=== PATIENT | female | born 1985 | race Caucasian/White ===

== ENCOUNTER 2018-01-22 03:35 | Emergency (ER) | payer OTHER, MEDICAID, SELFPAY ==
[2018-01-22 03:40] VITALS: BP 123/84; PULSE 66; RESP 16; TEMP 36.1; O2SAT 100; BMI 20.5
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
[2018-01-22] MEDS: IBUPROFEN 400 MG TABLET 600 MG PO (03:56)
[2018-01-22 04:35] VITALS: BP 123/84; PULSE 66; RESP 16; TEMP 36.1; O2SAT 100; BMI 20.5
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
== END 2018-01-22 04:20 | disposition home or self-care (01) ==
LOC: ED 04:45
PROVIDERS: Emergency Provider Emergency Medicine
DX: S16.1XXA Strain of muscle, fascia and tendon at neck level, initial encounter (principal); M25.512 Pain in left shoulder; M25.562 Pain in left knee; V49.40XA Driver injured in collision with unspecified motor vehicles in traffic accident, initial encounter
CPT/HCPCS: 99282

== ENCOUNTER → 2018-09-19 11:33 | Outpatient (CLI) | payer OTHER, MEDICAID, SELFPAY ==
[2018-09-19 12:50] LABS: Urine Amphetamines Negative (Negative); Urine Barbiturates Negative (Negative); Urine Benzodiazepines Negative (Negative); Urine Cocaine Negative (Negative); Urine MDMA Negative (Negative); Urine Methadone Negative (Negative); Urine Methamphetamines Negative (Negative); Urine Morphine/Opi cutoff 2000 Negative (Negative); Urine Oxycodone Negative (Negative); Urine Phencyclidine Negative (Negative); Urine Tetrahydrocannabinol Positive (Negative); Urine Tricyclic Antidepressant Negative (Negative)
== END ==
PROVIDERS: Visit Provider Psychiatry & Neurology Psychiatry
DX: Z13.89 Encounter for screening for other disorder (principal)
CPT/HCPCS: 80305

== ENCOUNTER → 2018-10-18 16:57 | Outpatient (CLI) | payer OTHER, MEDICAID, SELFPAY ==
[2018-10-18 18:44] LABS: Urine Amphetamines Negative (Negative); Urine Barbiturates Negative (Negative); Urine Benzodiazepines Positive (Negative); Urine Cocaine Negative (Negative); Urine MDMA Negative (Negative); Urine Methadone Negative (Negative); Urine Methamphetamines Negative (Negative); Urine Morphine/Opi cutoff 2000 Negative (Negative); Urine Oxycodone Negative (Negative); Urine Phencyclidine Negative (Negative); Urine Tetrahydrocannabinol Negative (Negative); Urine Tricyclic Antidepressant Negative (Negative)
== END ==
PROVIDERS: Visit Provider Psychiatry & Neurology Psychiatry
DX: F15.21 Other stimulant dependence, in remission (principal)
CPT/HCPCS: 80305

== ENCOUNTER 2018-12-08 02:42 | Emergency (ER) | payer OTHER, MEDICAID, SELFPAY ==
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
[2018-12-08 02:47] VITALS: BP 97/56; PULSE 102; RESP 16; TEMP 38.6; O2SAT 96; BMI 19.3
--- NOTE | 2018-12-08 02:50 | DI.CT.S_ITS ---
PROCEDURE: CT ABDOMEN PELVIS W CON INDICATIONS: Right lower quadrant abdominal pain TECHNIQUE: After the administration of intravenous contrast, 5 mm thick sections acquired from the diaphragm to the symphysis. 5 mm coronal and sagittal reformats were acquired. For radiation dose reduction, the following was used: automated exposure control, adjustment of mA and/or kV according to patient size. COMPARISON: None. FINDINGS: Image quality: Excellent. ABDOMEN: Lung bases: Lung bases are clear. Heart size is normal. Solid organs: Liver is normal in size and enhancement. Gallbladder is contracted. Biliary system is non dilated. Pancreas enhances normally. Spleen is normal in size and enhancement. No adrenal nodules. There is heterogeneous enhancement with striated cortical hypoattenuation and moderate right perinephric inflammatory stranding. Associated, scattered foci of cortical irregularity correlating with areas of hyperattenuation/herniation. No evidence for a mass fluid collection. There is also stranding surrounding the right renal pelvis. Visualized course of the right ureter is unremarkable without stone. No hydronephrosis. The left kidney demonstrates normal size and enhancement, without hydronephrosis. No nephrolith seen. Peritoneum and bowel: Bowel loops demonstrate normal wall thickness and caliber. No free fluid or air. The appendix is normal. Nodes and vessels: No retroperitoneal or mesenteric adenopathy by size criteria. Aorta and inferior vena cava are normal in size. Miscellaneous: No ventral hernias. PELVIS: Genitourinary: Bladder wall thickness is normal. An intrauterine device is noted within the endometrial cavity. Miscellaneous: No inguinal hernias or adenopathy. Bones: No suspicious bony lesions. No vertebral body compression fractures. IMPRESSION: 1. Mild cortical irregularity and striated heterogeneous enhancement of the right kidney with moderate perinephric stranding which also involves the right renal pelvis. Findings are suggestive of pyelonephritis. No evidence for perinephric abscess formation or perforation. No hydronephrosis or urolithiasis. 2. Normal appendix. Findings are concordant with preliminary radiology report. Dictated by: Josep Marcus M.D. on 12/08/2018 at 11:29 Approved by: Josep Marcus M.D. on 12/08/2018 at 11:34
[2018-12-08] MEDS: ONDANSETRON 4 MG/2 ML INJ IV (02:56)
[2018-12-08] MEDS: ACETAMINOPHEN 325 MG TABLET 650 MG PO (02:57)
[2018-12-08] MEDS: SODIUM CHLORIDE 0.9% 1,000 ML 1000 ML IV (02:57)
[2018-12-08 03:10] LABS: Add Manual Diff / Slide Review NO; Basophils Absolute Auto 100 /uL (0-100); Basophils Percent Auto 0.6 % (0-2); Eosinophils Absolute Auto 0 /uL (0-450); Eosinophils Percent Auto 0.1 % (2-4); Hematocrit 35.9 % (36-46); Hemoglobin 12.2 g/dL (12.0-16.0); Lymphocytes Absolute Auto 1000 /uL (1100-4500); Mean Corpuscular Hemoglobin 30.2 PG (26-34); Mean Corpuscular Volume 88.7 fL (80-100); Monocytes Absolute Auto 1000 /uL (0-900); Monocytes Percent Auto 8.4 % (3-14); Neutrophils Absolute Auto 9500 /uL (1500-7000); Neutrophils Percent Auto 81.9 % (50-75); Platelet Count 165 X10^3/uL (150-400); Red Blood Cell Count 4.05 X10^6/uL (4.0-5.2); Red Cell Distribution Width 13.5 % (11.6-14.8); White Blood Cell Count 11.6 X10^3/uL (4.5-11.0)
[2018-12-08 03:17] LABS: Pregnancy Test Serum,Qual Negative (Negative)
[2018-12-08 03:18] LABS: Alanine Aminotransferase 19 IU/L (9-52); Albumin 3.6 g/dL (3.5-5.0); Albumin Globulin Ratio 1.3 (1.0-2.8); Alkaline Phosphatase 51 U/L (38-126); Aspartate Aminotransferase 15 IU/L (14-36); BUN Creatinine Ratio 14.3 (6-22); Bilirubin Total 0.2 mg/dL (0.2-1.3); Blood Urea Nitrogen 10 mg/dL (7-17); Calcium 8.3 mg/dL (8.4-10.2); Carbon Dioxide 21 mmol/L (22-32); Chloride 99 mmol/L (98-107); Estimated Glomerular Filt Rate > 60.0 mL/min (>60); Globulin 2.8 g/dL (1.7-4.1); Glucose 111 mg/dL (70-100); HEMOLYSIS < 15 (0-50); Potassium 3.5 mmol/L (3.4-5.1); Sodium 129 mmol/L (137-145); Total Protein 6.4 g/dL (6.3-8.2)
[2018-12-08 03:19] LABS: Lactate (Lactic Acid) 0.7 mmol/L (0.7-2.1)
[2018-12-08 03:33] LABS: Procalcitonin 0.24 ng/mL (<0.5)
[2018-12-08 04:00] VITALS: TEMP 36.9
[2018-12-08 04:15] VITALS: BP 104/58; PULSE 77; RESP 16; TEMP 36.9; O2SAT 100
[2018-12-08] MEDS: CIPROFLOXACIN 500 MG TABLET PO (04:25)
[2018-12-08 04:49] LABS: Bacteria Urine Many (>30); Culture Indicated Urine Specimen Cultured; RBC Urine 0-1/HPF (0-5/HPF); Squamous Epithelial Cell Urine 0-1 /HPF (0-5/HPF); WBC Urine 5-10/HPF (0-5/HPF)
== END 2018-12-08 05:04 | disposition home or self-care (01) ==
PROVIDERS: Emergency Provider Emergency Medicine
DX: N12 Tubulo-interstitial nephritis, not specified as acute or chronic (principal); M54.5 Low back pain; N89.8 Other specified noninflammatory disorders of vagina
CPT/HCPCS: 36591; 74177; 80053; 81003; 81015; 83605; 84145; 84703; 85025; 87077; 87086; 87186; 96361; 96374; 99283; 99284; J2405; Q9967

== ENCOUNTER 2019-08-28 18:27 | Emergency (ER) | payer OTHER, MEDICAID, SELFPAY ==
[2019-08-28 18:41] VITALS: BP 143/90; PULSE 90; RESP 12; TEMP 36.3; O2SAT 98
[2019-08-28 19:06] LABS: UR Morphine/Opiate cutoff 300 Negative (Negative); Ur Creatinine Normal (Normal); Ur Specific Gravity Normal (Normal); Urine Amphetamines Negative (Negative); Urine Barbiturates Negative (Negative); Urine Benzodiazepines Negative (Negative); Urine Cocaine Negative (Negative); Urine MDMA Negative (Negative); Urine Methadone Negative (Negative); Urine Methamphetamines Negative (Negative); Urine Oxycodone Negative (Negative); Urine Phencyclidine Negative (Negative); Urine Tetrahydrocannabinol Negative (Negative); Urine Tricyclic Antidepressant Negative (Negative); Urine pH Normal (Normal)
--- NOTE | 2019-08-28 19:06 | ED_ITS ---
HPI - Female Genitourinary <CHRISTINE Gaffney - Last Filed: 08/28/19 20:19> General Chief complaint: Urogenital-Female Stated complaint: WANTS UA UNABLE TO TASTE/POSS ? Time Seen by Provider: 08/28/19 18:44 Source: patient Mode of arrival: Ambulatory Limitations: no limitations History of Present Illness HPI Narrative: The patient is a 34-year-old female with an extensive medical history including methamphetamine abuse, pyelonephritis, PTSD, anxiety who presents with multiple complaints including requesting a urinalysis, requesting a drug screen as she is afraid somebody is drugging her, stating that she feels ?not quite right but cannot state what that means to her. She is concerned about the possibility of as she has not had a menstrual cycle in 2 months. She states that she has been losing her sense of taste and smell over the past month and a half. She states that she has a ?small sore for a few days on perineal area. She states is painful when she presses on it, but does not itch. She denies any vaginal discharge, pelvic pain, abdominal pain, nausea vomiting or diarrhea. Related Data Home Medications Medication Instructions Recorded Confirmed buprenorphine-naloxone 1 film SUBLINGUAL DAILY 08/28/19 08/28/19 Allergies Allergy/AdvReac Type Severity Reaction Status Date / Time No Known Drug Allergies Allergy Verified 05/05/19 11:47 Review of Systems <CHRISTINE Gaffney - Last Filed: 08/28/19 20:19> Review of Systems Narrative: GENERAL: Denies chills, fatigue, malaise, fever, sweats. HEENT: Denies sinus pain, ear pain, sore throat, difficulty swallowing, dizziness. RESPIRATORY: Denies dyspnea, cough, wheezing, hemoptysis, sputum. CARDIOVASCULAR: Denies chest pain, palpitations, orthopnea, edema, GASTROINTESTINAL: Denies nausea, vomiting, abdominal pain, diarrhea, constipation, melena. : See HPI MUSCULOSKELETAL: denies weakness, joint pain, or bony pain SKIN: Denies rash, skin lesions, or other NEUROLOGIC: Denies weakness, headache, numbness, change in speech, confusion, seizures, incoordination. PSYCHIATRIC: See HPI 12 point review of systems is negative except for those stated above Patient History <CHRISTINE Gaffney - Last Filed: 08/28/19 20:19> Medical History Anxiety (Acute) Drug abuse (Acute) PTSD (post-traumatic stress disorder) (Acute) alcohol intake frequency: a few times a week Substance Use Type: amphetamines Exam <AL Gaffney - Last Filed: 08/28/19 20:19> Narrative Exam Narrative: GENERAL: This is a well-nourished, well-developed patient, in no acute distress HEAD: Atraumatic. Normocephalic. No temporal or scalp tenderness. EYES: Pupils equal round and reactive. Extraocular motions intact. No scleral icterus. No injection or drainage. ENT: Nose without bleeding, purulent drainage or septal hematoma. Throat without erythema, tonsillar hypertrophy or exudate. Uvula midline. Airway patent. NECK: Trachea midline. No JVD or lymphadenopathy. Supple, nontender, no meningeal signs. CARDIOVASCULAR: Regular rate and rhythm RESPIRATORY: Clear to auscultation. Breath sounds equal bilaterally. No wheezes, rales, or rhonchi. No cough. No increased respiratory effort. No accessory muscle use. GASTROINTESTINAL: Abdomen soft, non-tender, nondistended. No hepato- splenomegaly, or palpable masses. No guarding. EXTREMITIES: No clubbing, cyanosis, or edema. No joint tenderness, effusion, or edema noted. BACK: Nontender without deformity or crepitance. No flank tenderness. NEURO: AOx3. SKIN: No visible bump, irregularity noted and genitaliaedith RN at bedside for exam, Initial Vital Signs Initial Vital Signs: Vital Signs Temperature 97.3 F L 08/28/19 18:41 Pulse Rate 90 08/28/19 18:41 Respiratory Rate 12 08/28/19 18:41 Blood Pressure 143/90 H 08/28/19 18:41 Pulse Oximetry 98 08/28/19 18:41 <Preet Huynh MD - Last Filed: 08/29/19 02:48> Initial Vital Signs Initial Vital Signs: Vital Signs Temperature 97.3 F L 08/28/19 18:41 Pulse Rate 90 08/28/19 18:41 Respiratory Rate 12 08/28/19 18:41 Blood Pressure 143/90 H 08/28/19 18:41 Pulse Oximetry 98 08/28/19 18:41 Scores <AL Gaffney - Last Filed: 08/28/19 20:19> GCS Jai coma scale eye opening: Spontaneous [place] coma scale verbal response: Orientated Jai coma scale motor response: Obey commands Jai coma scale total score: 15 Course <AL Gaffney - Last Filed: 08/28/19 20:19> Orders Ordered: ED Orders 08/28/19 18:46 Urine Drug Screen, Rapid Stat Vital Signs Vital signs: Vital Signs - 8 hr 08/28/19 18:41 Temperature 97.3 F L Pulse Rate 90 Respiratory Rate 12 Blood Pressure 143/90 H Pulse Oximetry 98 <Preet Huynh MD - Last Filed: 08/29/19 02:48> Orders Ordered: ED Orders 08/28/19 18:46 Urine Drug Screen, Rapid Stat Vital Signs Vital signs: Vital Signs - 8 hr 08/28/19 18:41 Temperature 97.3 F L Pulse Rate 90 Respiratory Rate 12 Blood Pressure 143/90 H Pulse Oximetry 98 MDM - Female Genitourinary <AL Gaffney - Last Filed: 08/28/19 20:19> Lab Data Labs: Lab Results 08/28/19 Range/Units 18:46 U Opiates 300ng/mL cut Negative (Negative) Ur Oxycodone Screen Negative (Negative) Urine Methadone Screen Negative (Negative) Ur Barbiturates Screen Negative (Negative) U Tricyclic Antidepress Negative (Negative) Ur Phencyclidine Scrn Negative (Negative) Ur Amphetamines Screen Negative (Negative) U Methamphetamines Scrn Negative (Negative) Ur MDMA Scrn (Ecstasy) Negative (Negative) U Benzodiazepines Scrn Negative (Negative) Urine Cocaine Screen Negative (Negative) U Marijuana (THC) Screen Negative (Negative) Point of Care Testing Test Results Negative Urine Dip Bedside Urine Glucose Negative Bedside Urine Bilirubin - Negative Bedside Urine Ketone - Negative Urine Specific [place] 1.025 Bedside Urine Occult Blood - Negative Bedside Urine pH 6.0 Bedside Urine Protein - Negative Bedside Urine Urobilinogen - Negative Bedside Urine Nitrite - Negative Bedside Urine Leukocytes - Negative Esterase MDM Narrative Medical decision making narrative: The patient is a 34-year-old female presents with a chief complaint of wanting to be tested for urinalysis, possible in decreased taste sensation for the past several months. She states that she is 32 days clean from methamphetamine and all drugs. She is wondering of her Suboxone is changing her taste buds. For this I encouraged her to follow up with ideal options, discussed that Suboxone might be having an impact on taste buds, as could have smoking methamphetamine. She is concerned about drugs in her system, but urinalysis is clean. She is not concerned about assault, does not want to speak to police, does not want us to call police. Discussed at length the fact that she wants a well-woman screening exam with Pap smear that we do not do Pap smears in the emergency department. I did give her contact information on hospital water resources engineer. Discussed at length the importance of follow-up with primary care provider ideal options. Reassurance provided, patient congratulated several times and being clean for 32 days. Patient has no questions or concerns upon discharge and states understanding of return precautions as well as follow-up care. <Preet Huynh MD - Last Filed: 08/29/19 02:48> Lab Data Labs: Lab Results 08/28/19 Range/Units 18:46 U Opiates 300ng/mL cut Negative (Negative) Ur Oxycodone Screen Negative (Negative) Urine Methadone Screen Negative (Negative) Ur Barbiturates Screen Negative (Negative) U Tricyclic Antidepress Negative (Negative) Ur Phencyclidine Scrn Negative (Negative) Ur Amphetamines Screen Negative (Negative) U Methamphetamines Scrn Negative (Negative) Ur MDMA Scrn (Ecstasy) Negative (Negative) U Benzodiazepines Scrn Negative (Negative) Urine Cocaine Screen Negative (Negative) U Marijuana (THC) Screen Negative (Negative) Point of Care Testing Test Results Negative Urine Dip Bedside Urine Glucose Negative Bedside Urine Bilirubin - Negative Bedside Urine Ketone - Negative Urine Specific [place] 1.025 Bedside Urine Occult Blood - Negative Bedside Urine pH 6.0 Bedside Urine Protein - Negative Bedside Urine Urobilinogen - Negative Bedside Urine Nitrite - Negative Bedside Urine Leukocytes - Negative Esterase Discharge Plan Departure Patient Disposition: Home Clinical Impression: Feared complaint without diagnosis Discharge Date/Time: 08/28/19 20:12 Instructions: Buprenorphine Sublingual and Buccal (opioid dependence) Activity Restrictions/Additional Instructions: I'm very proud of you for staying clean for 32 days! Your urinalysis today had no acute abnormalities, test came back negative and your drug screen came back negative Please follow-up with primary care provider as well as ideal options. I've given the contact information [facility] health water resources engineer who can help you find a primary care provider. As discussed, I cannot do a thorough well-woman evaluation, screening exam in the emergency department. Please follow-up with primary care provider or the options as we discussed Prescriptions: No Action buprenorphine-naloxone 8-2 mg film 1 film sublingual DAILY RF: 0 Referrals: [facility] [Outside]
--- NOTE | 2019-08-28 19:08 | PC.NURSE ---
patient concerned about a bump on majora labia, stand by for exam with Mily Melgar. no wound or open area noted.
== END 2019-08-28 20:12 | disposition home or self-care (01) ==
PROVIDERS: Emergency Provider Nurse Practitioner Family
DX: Z71.1 Person with feared health complaint in whom no diagnosis is made (principal)
CPT/HCPCS: 80305; 81003; 81025; 99282

== ENCOUNTER 2019-10-31 12:50 | Emergency (ER) | payer OTHER, MEDICAID, SELFPAY ==
[2019-10-31 13:01] VITALS: BP 135/89; PULSE 62; RESP 18; TEMP 37.2; O2SAT 99; BMI 23.9
--- NOTE | 2019-10-31 13:14 | ED.URI ---
HPI - URI/Sore Throat <MARIA Ledbetter - Last Filed: 10/31/19 21:14> General Chief Complaint: Upper Respiratory Symptoms Stated Complaint: Fever/Cough/Tired Time Seen by Provider: 10/31/19 12:56 Source: patient Mode of arrival: Ambulatory History of Present Illness HPI Narrative: 34yo female who is currently on Suboxone, presents to the emergency department complaining of fatigue, mildly productive cough, intermittent elevated temp of 99F that occurs at the end of the day occasionally. Patient states she also feels a ?popping and cracking in her chest when breathing. Patient states in the morning and feels like her shoulders and hips and knees ache. Patient states she did have intermittent dysuria for the past week as well. Patient states that she has a chronic problem with nausea for which she takes ondansetron for. Patient denies any vomiting, abdominal pain, dizziness, chest pain, shortness of breath, or any other concerns. Patient denies any history of asthma but states she has had pneumonia before. Related Data Home Medications Medication Instructions Recorded Confirmed buprenorphine-naloxone 1 film SUBLINGUAL DAILY 08/28/19 08/28/19 Previous Rx's Medication Instructions Recorded cephalexin 500 mg PO BID 7 Days #14 cap 10/31/19 Allergies Allergy/AdvReac Type Severity Reaction Status Date / Time No Known Drug Allergies Allergy Verified 10/31/19 13:04 Review of Systems <MARIA Ledbetter - Last Filed: 10/31/19 21:14> Review of Systems Narrative: REVIEW OF SYSTEMS: GENERAL: Reports intermittent elevated temp. HENT: No head trauma or hearing loss. EYES: No loss of vision, double vision, eye pain, irritation or discharge. CARDIOVASCULAR: No chest pain or syncope. RESPIRATORY: Complains of cough, see HPI. GASTROINTESTINAL: No nausea, vomiting, diarrhea, or constipation. MUSCULOSKELETAL: No weakness or injury. INTEGUMENTARY: No rash, lesions, or pruritus. Patient History <MARIA Ledbetter - Last Filed: 10/31/19 21:14> Medical History Anxiety (Acute) Drug abuse (Acute) PTSD (post-traumatic stress disorder) (Acute) Social History Smoking Status: Current every day smoker Smoking Status: Current every day smoker alcohol intake frequency: a few times a week Substance Use Type: does not use and prescription drug Exam <MARIA Ledbetter - Last Filed: 10/31/19 21:14> Initial Vital Signs Initial Vital Signs: Vital Signs Temperature 99.0 F 10/31/19 13:01 Pulse Rate 62 10/31/19 13:01 Respiratory Rate 18 10/31/19 13:01 Blood Pressure 135/89 10/31/19 13:01 Pulse Oximetry 99 10/31/19 13:01 PHYSICAL EXAMINATION: GENERAL: Well groomed, alert, and cooperative. Answers questions promptly and appropriately. Vital signs noted. HENT: Normocephalic, atraumatic. Ear canals patent. TMs intact without mucus or erythema. Oropharynx with slight erythema, no exudate, Tonsils are not present. EYES: Conjunctiva pink, sclera white, no periorbital swelling. No discharge. CHEST: Normal to inspection and without deformities. CARDIOVASCULAR: S1 and S2 sounds normal. Regular rate and rhythm, no murmurs, clicks, or bruits. RESPIRATORY: Normal respiratory rate, trachea midline, airway patent. No stridor, nasal flaring or accessory muscle use. Able to speak in full sentences. Lungs are clear in all [place] without wheeze, rhonchi, or crackles. Productive cough noted throughout examination. MUSCULOSKELETAL: Normal gait and coordination. Equal tone and mass bilaterally. EXTREMITIES: Moves all extremities. SKIN: Warm, dry, soft, appropriate color for ethnicity. No lesions, rashes, or wounds to visualized areas. NEURO: Alert and Oriented X 3. Good coordination. No ataxia or cognitive issues. PSYCH: Appropriate affect and mood. <Marty iRch DO - Last Filed: 11/03/19 11:35> Initial Vital Signs Initial Vital Signs: Vital Signs Temperature 99.0 F 10/31/19 13:01 Pulse Rate 62 10/31/19 13:01 Respiratory Rate 18 10/31/19 13:01 Blood Pressure 135/89 10/31/19 13:01 Pulse Oximetry 99 10/31/19 13:01 Course <MARIA Ledbetter - Last Filed: 10/31/19 21:14> Course Course Narrative: Patient was given Toradol in the emergency department, she reported improved pain and body aches. Orders Ordered: Discontinued Medications Ketorolac Tromethamine (Toradol) 30 mg IM NOW ONE Stop: 10/31/19 13:15 Last Admin: 10/31/19 13:31 Dose: 30 mg Documented by: [email or web address] Vital Signs Vital signs: Vital Signs - 8 hr 10/31/19 13:33 Temperature 98.2 F Pulse Rate 81 Respiratory Rate 20 Blood Pressure [Left Arm] 138/81 Pulse Oximetry 100 <Marty Rich DO - Last Filed: 11/03/19 11:35> Orders Ordered: Discontinued Medications Ketorolac Tromethamine (Toradol) 30 mg IM NOW ONE Stop: 10/31/19 13:15 Last Admin: 10/31/19 13:31 Dose: 30 mg Documented by: [email or web address] Vital Signs Vital signs: Vital Signs - 8 hr 10/31/19 13:33 Temperature 98.2 F Pulse Rate 81 Respiratory Rate 20 Blood Pressure [Left Arm] 138/81 Pulse Oximetry 100 MDM - URI/Sore Throat <MARIA Ledbetter - Last Filed: 10/31/19 21:14> Medical Records Attestation: I reviewed the patient's medical records. Lab Data Attestation: I reviewed the patient's lab results. Labs: Lab Results 10/31/19 Range/Units 13:15 Urine RBC 0-1/hpf (0-5/HPF) Urine WBC 1-5/hpf (0-5/HPF) Ur Squamous Epith Cells 10-30 /hpf H D (0-5/HPF) Urine Bacteria Moderate (10-30) H (None) Ur Culture Indicated? Cult not indicated Point of Care Testing Test Results Negative Urine Dip Bedside Urine Glucose Negative Bedside Urine Bilirubin - Negative Bedside Urine Ketone - Negative Urine Specific [place] 1.020 Bedside Urine Occult Blood - Negative Bedside Urine pH 6.0 Bedside Urine Protein - Negative Bedside Urine Urobilinogen - Negative Bedside Urine Nitrite - Negative Bedside Urine Leukocytes +/- 15 Esterase Imaging Data Chest x-ray: Radiologist's Impression: [address] [place] [id number] XRay Report Signed Patient: Kristi Ramírez EMR#: [id number] : 1985Acct:[id number] Age/Sex: 34 / FDate of Service: 10/31/19 Loc: ED Accession Number: [id number] Procedure: XR chest 2V Ordering Provider: Jossy Chow PROCEDURE: XR CHEST 2V INDICATIONS: Cough TECHNIQUE: 2 views of the chest were acquired. COMPARISON: None. FINDINGS: Surgical changes and devices: None. Lungs and pleura: Lungs are clear. No pleural effusions or pneumothorax. Mediastinum: Mediastinal contours are normal. Heart size is normal. Bones and chest wall: No suspicious bony abnormalities. Soft tissues appear unremarkable. IMPRESSION: Normal for age, source of current cough symptoms is not seen. Dictated by: Patrick Obregon M.D. on 10/31/2019 at 14:00 Approved by: Patrick Obregon M.D. on 10/31/2019 at 14:00 [facility] Narrative Medical decision making narrative: 34-year-old female presenting to the emergency department for cough, fatigue, body aches, and low-grade fever. Chest x-ray was negative for any pneumonia. I suspect she may have a viral upper respiratory tract infection with possible bronchitis. We discussed this is most likely viral. She did mention she has dysuria, urine showed leukocytes and bacteria, she was treated for this. Less concern for pyelonephritis due to lack of back pain, no CVA tenderness. Patient is hemodynamically stable and able to maintain fluids. She is a candidate for outpatient treatment. Patient did complain of nausea, this is a common problem and is controlled with Zofran. Patient was encouraged to continue taking Tylenol and ibuprofen as needed for low-grade fever. Patient given strict return precautions for any new or worsening symptoms, she agrees plan of care and verbalized understanding. <Marty Rich, - Last Filed: 11/03/19 11:35> Lab Data Labs: Lab Results 10/31/19 Range/Units 13:15 Urine RBC 0-1/hpf (0-5/HPF) Urine WBC 1-5/hpf (0-5/HPF) Ur Squamous Epith Cells 10-30 /hpf H D (0-5/HPF) Urine Bacteria Moderate (10-30) H (None) Ur Culture Indicated? Cult not indicated Point of Care Testing Test Results Negative Urine Dip Bedside Urine Glucose Negative Bedside Urine Bilirubin - Negative Bedside Urine Ketone - Negative Urine Specific [place] 1.020 Bedside Urine Occult Blood - Negative Bedside Urine pH 6.0 Bedside Urine Protein - Negative Bedside Urine Urobilinogen - Negative Bedside Urine Nitrite - Negative Bedside Urine Leukocytes +/- 15 Esterase Discharge Plan Departure Patient Disposition: Home Clinical Impression: Cough Urinary tract infection Qualifiers: Urinary tract infection type: acute cystitis Hematuria presence: without hematuria Qualified Code(s): N30.00 - Acute cystitis without hematuria Discharge Date/Time: 10/31/19 14:28 Instructions: DI for Urinary Tract Infection (UTI) Activity Restrictions/Additional Instructions: Thank you for entrusting me with your care today. As discussed, your chest x-ray is negative for any signs of pneumonia. However, your urine does show a probable infection. As prescribed you antibiotics, please take these as directed, these were sent to [facility] in [place]. Return emergency department for any new or worsening symptoms such as uncontrollable vomiting, chest pain, syncope, severe shortness of breath that does not allowed to walk across the room, or any other concerns. Prescriptions: New cephalexin 500 mg capsule 500 mg PO BID 7 Days Qty: 14 RF: 0 No Action buprenorphine-naloxone 8-2 mg film 1 film sublingual DAILY RF: 0 <Marty Rich DO - Last Filed: 11/03/19 11:35> Sign Out Provider Sign Out Attestation: I was immediately available in the department for consultation. This documentation has been reviewed and I agree with assessment and plan. Supervised by Marty Rich DO
[2019-10-31] MEDS: KETOROLAC 60 MG/2 ML VIAL 30 MG IM (13:31)
[2019-10-31 13:33] VITALS: BP 138/81; PULSE 81; RESP 20; TEMP 36.8; O2SAT 100
[2019-10-31 13:43] LABS: RBC Urine 0-1/HPF (0-5/HPF); Squamous Epithelial Cell Urine 10-30 /HPF (0-5/HPF); WBC Urine 1-5/HPF (0-5/HPF)
[2019-10-31 13:44] LABS: Bacteria Urine Moderate (10-30); Culture Indicated Urine Cult Not Indicated
== END 2019-10-31 14:28 | disposition home or self-care (01) ==
PROVIDERS: Emergency Provider Nurse Practitioner
DX: R05 Cough (principal); N30.00 Acute cystitis without hematuria; R50.9 Fever, unspecified
CPT/HCPCS: 71046; 81003; 81015; 81025; 96372; 99283; 99284; J1885

== ENCOUNTER → 2020-04-10 14:38 | Outpatient (CLI) | payer OTHER, MEDICAID, SELFPAY ==
[2020-04-10 15:24] LABS: Add Manual Diff / Slide Review NO; Basophils Absolute Auto 100 /uL (0-100); Basophils Percent Auto 0.6 % (0-2); Eosinophils Absolute Auto 100 /uL (0-450); Eosinophils Percent Auto 1.4 % (2-4); Hematocrit 35.3 % (36-46); Hemoglobin 11.9 g/dL (12.0-16.0); Lymphocytes Absolute Auto 3000 /uL (1100-4500); Lymphocytes Percent Auto 28.1 % (25-40); Mean Corpuscular HGB Conc 33.6 % (30-36); Mean Corpuscular Hemoglobin 29.9 PG (26-34); Mean Corpuscular Volume 88.9 fL (80-100); Monocytes Absolute Auto 500 /uL (0-900); Monocytes Percent Auto 4.5 % (3-14); Neutrophils Absolute Auto 6900 /uL (1500-7000); Neutrophils Percent Auto 65.4 % (50-75); Platelet Count 213 X10^3/uL (150-400); Red Blood Cell Count 3.97 X10^6/uL (4.0-5.2); Red Cell Distribution Width 13.5 % (11.6-14.8); White Blood Cell Count 10.6 X10^3/uL (4.5-11.0)
[2020-04-10 15:52] LABS: Alanine Aminotransferase 17 IU/L (<35); Albumin 4.2 g/dL (3.5-5.0); Albumin Globulin Ratio 1.8 (1.0-2.8); Alkaline Phosphatase 51 U/L (38-126); Aspartate Aminotransferase 24 IU/L (14-36); BUN Creatinine Ratio 24.1 (6-22); Bilirubin Total 0.4 mg/dL (0.2-1.3); Blood Urea Nitrogen 14 mg/dL (7-17); Calcium 9.2 mg/dL (8.4-10.2); Carbon Dioxide 25 mmol/L (22-32); Chloride 104 mmol/L (98-107); Estimated Glomerular Filt Rate > 60.0 mL/min (>60); Globulin 2.3 g/dL (1.7-4.1); Glucose 101 mg/dL (70-100); HEMOLYSIS < 15 (0-50); Lipase 83 U/L (23-300); Potassium 4.3 mmol/L (3.4-5.1); Sodium 136 mmol/L (137-145); Total Protein 6.5 g/dL (6.3-8.2)
== END ==
PROVIDERS: Referring Provider Nurse Practitioner; Visit Provider Nurse Practitioner
DX: R10.11 Right upper quadrant pain (principal)
CPT/HCPCS: 36415; 80053; 83690; 85025

== ENCOUNTER → 2020-04-17 11:51 | Outpatient (CLI) | payer OTHER, MEDICAID, SELFPAY ==
--- NOTE | 2020-04-17 11:52 | DI.US.S_ITS ---
PROCEDURE: US ABDOMEN LIMITED INDICATIONS: RIGHT UPPER QUADRANT PAIN, BLOATING TECHNIQUE: Real-time focused scanning was performed of the abdomen, with image documentation. COMPARISON: [facility], CT, CT ABDOMEN PELVIS W CON, 12/08/2018, 3:03. FINDINGS: The liver is normal in size and demonstrates no focal lesions. No findings of gallstones or sludge are seen. The gallbladder wall is not thickened, measuring 3 mm or less. No specific pericholecystic fluid is seen. The sonographic Spencer sign is negative. There is no biliary dilatation, the common bile duct measures 6 mm. The visualized pancreas is unremarkable. IMPRESSION: The gallbladder demonstrates a normal sonographic appearance. No biliary dilatation is seen. Dictated by: Ernesto Lovett M.D. on 04/17/2020 at 12:06 Approved by: Ernesto Lovett M.D. on 04/17/2020 at 12:08
== END ==
PROVIDERS: Referring Provider Nurse Practitioner; Visit Provider Nurse Practitioner
DX: R10.11 Right upper quadrant pain (principal); R14.0 Abdominal distension (gaseous)
CPT/HCPCS: 76705

== ENCOUNTER 2020-10-27 15:19 | Emergency (ER) | payer OTHER, MEDICAID, SELFPAY ==
[2020-10-27 15:32] VITALS: BP 154/96; PULSE 70; RESP 16; TEMP 36.9; O2SAT 99; BMI 23.1
[2020-10-27 17:15] VITALS: PULSE 88; RESP 16; O2SAT 99
--- NOTE | 2020-10-27 18:08 | ED_ITS ---
HPI - Dental/Oral <AL Gaffney - Last Filed: 10/27/20 18:14> General Chief complaint: Dental/Oral Stated complaint: states hole in tooth, pain Time Seen by Provider: 10/27/20 15:40 Source: patient Mode of arrival: Ambulatory Limitations: no limitations History of Present Illness HPI Narrative: The patient is a 35-year-old female current everyday smoker, ex methamphetamine user who presents with a chief complaint of dental pain and a possible dental infection. She states that she started having issues on her left posterior molar site where she had a tooth removed. She states that this happened about 8 months ago. She states that she has not followed up with a dentist since then, but over the past few days she has noticed pain and swelling from that area. She denies any fevers muscle aches or chills. States that the pain goes down to the jaw. She took some ibuprofen prior to arrival. Related Data Home Medications Medication Instructions Recorded Confirmed buprenorphine 5.7 mg-naloxone 1.4 3 tab SL DAILY tab 12/18/19 04/10/20 mg sublingual tablet Previous Rx's Medication Instructions Recorded fluconazole 150 mg tablet 150 mg PO DAILY #4 tab 12/18/19 lorazepam 0.5 mg tablet 0.5 mg PO DAILY PRN #2 tab 12/18/19 phenazopyridine 200 mg tablet 200 mg PO TID #6 tab 12/18/19 sulfamethoxazole 800 1 tab PO BID #14 tab 12/18/19 mg-trimethoprim 160 mg tablet fluconazole [Diflucan] 150 mg PO Q3D #2 tab 10/27/20 ketorolac 10 mg PO TID PRN #14 tab 10/27/20 penicillin V potassium 500 mg PO TID #30 tab 10/27/20 Allergies Allergy/AdvReac Type Severity Reaction Status Date / Time No Known Drug Allergies Allergy Verified 10/27/20 15:32 Review of Systems <AL Gaffney - Last Filed: 10/27/20 18:14> Review of Systems Narrative: GENERAL: Denies chills, fatigue, malaise, fever, sweats. HEENT: See HPI RESPIRATORY: Denies dyspnea, cough, wheezing, hemoptysis, sputum. CARDIOVASCULAR: Denies chest pain, palpitations, orthopnea, edema, GASTROINTESTINAL: Denies nausea, vomiting, abdominal pain, diarrhea, constipation, melena. : Denies dysuria, frequency, incontinence, hematuria, urinary retention. MUSCULOSKELETAL: denies weakness, joint pain, or bony pain SKIN: Denies rash, skin lesions, or other NEUROLOGIC: Denies weakness, headache, numbness, change in speech, confusion, seizures, incoordination. PSYCHIATRIC: No concerning psychosocial issues. 12 point review of systems is negative except for those stated above Patient History <AL Gaffney - Last Filed: 10/27/20 18:14> Medical History Anxiety Drug abuse PTSD (post-traumatic stress disorder) Urinary tract infection Social History Smoking Status: Current every day smoker Smoking Status: Current every day smoker alcohol intake frequency: a few times a week Substance Use Type: does not use and prescription drug Exam <AL Gaffney - Last Filed: 10/27/20 18:14> Narrative Exam Narrative: GENERAL: This is a well-nourished, well-developed patient, in no acute HEAD: Atraumatic. Normocephalic. No temporal or scalp tenderness. EYES: Pupils equal round and reactive. Extraocular motions intact. No scleral icterus. No injection or drainage. ENT: Nose without bleeding, purulent drainage or septal hematoma. Throat without erythema, tonsillar hypertrophy or exudate. Uvula midline. Airway patent. Left posterior molar removal site with erythema, pain to palpation. No overlying erythema drawn. Speaking without difficulty. NECK: Trachea midline. No JVD or lymphadenopathy. Supple, nontender, no meningeal signs. CARDIOVASCULAR: Regular rate and rhythm RESPIRATORY: Clear to auscultation. Breath sounds equal bilaterally. No wheezes, rales, or rhonchi. EXTREMITIES: Using all extremities equally BACK: Nontender without deformity or crepitance. No flank tenderness. NEURO: AOx3. SKIN: No rash or erythema on visible skin Initial Vital Signs Initial Vital Signs: Vital Signs Temperature 98.4 F 10/27/20 15:32 Pulse Rate 70 10/27/20 15:32 Respiratory Rate 16 10/27/20 15:32 Blood Pressure 154/96 H 10/27/20 15:32 Pulse Oximetry 99 10/27/20 15:32 <Emely Weiss DO - Last Filed: 10/27/20 18:17> Initial Vital Signs Initial Vital Signs: Vital Signs Temperature 98.4 F 10/27/20 15:32 Pulse Rate 70 10/27/20 15:32 Respiratory Rate 16 10/27/20 15:32 Blood Pressure 154/96 H 10/27/20 15:32 Pulse Oximetry 99 10/27/20 15:32 Scores <AL Gaffney - Last Filed: 10/27/20 18:14> GCS Jai coma scale eye opening: Spontaneous Jai coma scale verbal response: Orientated Jai coma scale motor response: Obey commands Jai coma scale total score: 15 Course <AL Gaffney - Last Filed: 10/27/20 18:14> Vital Signs Vital signs: Vital Signs - 8 hr 10/27/20 15:32 10/27/20 17:15 Temperature 98.4 F Pulse Rate 70 88 Respiratory Rate 16 16 Blood Pressure 154/96 H Pulse Oximetry 99 99 <Emely Weiss DO - Last Filed: 10/27/20 18:17> Vital Signs Vital signs: Vital Signs - 8 hr 10/27/20 15:32 10/27/20 17:15 Temperature 98.4 F Pulse Rate 70 88 Respiratory Rate 16 16 Blood Pressure 154/96 H Pulse Oximetry 99 99 MDM - Dental/Oral <AL Gaffney - Last Filed: 10/27/20 18:14> Lab Data Labs: Point of Care Testing Test Results Negative Urine Dip Bedside Urine Glucose Negative Bedside Urine Bilirubin - Negative Bedside Urine Ketone - Negative Urine Specific [place] 1.025 Bedside Urine Occult Blood - Negative Bedside Urine pH 6.0 Bedside Urine Protein - Negative Bedside Urine Urobilinogen - Negative Bedside Urine Nitrite - Negative Bedside Urine Leukocytes - Negative Esterase MDM Narrative Medical decision making narrative: The patient is a 35-year-old female who presents with a chief complaint of dental pain and possible dental infection. Exam correlates with dental infection. Started patient on penicillin. Encouraged her to follow up with her dentist in the next few days. I did give her a prescription of Diflucan per her request, encouraged her to take antibiotic with probiotics or yogurt. Toradol prescription provided. Patient has no questions or concerns upon discharge states understanding of return precautions as well as follow-up care. <Emely Weiss DO - Last Filed: 10/27/20 18:17> Lab Data Labs: Point of Care Testing Test Results Negative Urine Dip Bedside Urine Glucose Negative Bedside Urine Bilirubin - Negative Bedside Urine Ketone - Negative Urine Specific [place] 1.025 Bedside Urine Occult Blood - Negative Bedside Urine pH 6.0 Bedside Urine Protein - Negative Bedside Urine Urobilinogen - Negative Bedside Urine Nitrite - Negative Bedside Urine Leukocytes - Negative Esterase Discharge Plan Departure Patient Disposition: Home Clinical Impression: Dental infection Instructions: DI for Dental Pain Activity Restrictions/Additional Instructions: Thank you for trusting us with your care today. As discussed I sent 3 prescriptions to [facility] common antibiotic, ketorolac or Toradol for pain as well as Diflucan. Please follow-up with a dentist in the next few days. You can contact her insurance to see who has coverage in the area, if needed you can follow-up with his see [facility] or [facility]. Please come back to the emergency department for any acute concerns such as severe swelling, fevers etcetera. Prescriptions: New penicillin V potassium 500 mg tablet 500 mg PO TID Qty: 30 RF: 0 ketorolac 10 mg tablet 10 mg PO TID PRN (Reason: pain) Qty: 14 RF: 0 fluconazole [Diflucan] 150 mg tablet 150 mg PO Q3D Qty: 2 RF: 0 No Action Zubsolv 5.7-1.4 mg tablet, sublingual 3 tab SL DAILY RF: 0 sulfamethoxazole-trimethoprim [Bactrim DS] 800-160 mg tablet 1 tab PO BID Qty: 14 RF: 0 phenazopyridine [Pyridium] 200 mg tablet 200 mg PO TID Qty: 6 RF: 1 fluconazole [Diflucan] 150 mg tablet 150 mg PO DAILY Qty: 4 RF: 1 lorazepam 0.5 mg tablet 0.5 mg PO DAILY PRN (Reason: anxiety) Qty: 2 RF: 0 Referrals: Harry Lambert MD [Primary Care Provider] - <Emely Weiss DO - Last Filed: 10/27/20 18:17> Cosign ED Attending Dianeature Attestation: I was immediately available in the department for consultation. Documentation has been reviewed.
== END 2020-10-27 17:50 | disposition home or self-care (01) ==
PROVIDERS: Emergency Provider Nurse Practitioner Family; PCP Family Medicine Sports Medicine
DX: K04.7 Periapical abscess without sinus (principal)
CPT/HCPCS: 81003; 81025; 99281; 99282

== ENCOUNTER 2022-04-10 19:34 | Emergency (ER) | payer OTHER, MEDICAID, SELFPAY ==
[2022-04-10 19:40] VITALS: BP 131/86; PULSE 89; RESP 16; TEMP 36.7; O2SAT 95; BMI 22.3
--- NOTE | 2022-04-10 20:02 | ED_ITS ---
HPI - Skin/Abscess/Foreign Bdy General Chief complaint: Skin/Abscess/Foreign Body Stated complaint: Spider bite Time Seen by Provider: 04/10/22 20:02 Mode of arrival: Family Vehicle History of Present Illness HPI narrative: 37-year-old female former smoker and former IV drug abuser presents with a chief complaint of painful spider bites on her lower extremities. She states that a few days ago she had a few small painful bites and found spiders, some of which she vaccumed up and others she caught by other means. She has 2-3 per lower extremity evolving since they were 1st noticed on Wednesday night. A few of them had developed clear fluid-filled blisters with very minimal surrounding erythema. She reports that she had done a telemedicine conference with her physician in bed started on Augmentin but was told that if things worsen she should present to the emergency department. There was some discussion about whether or not this may be from a brown recluse. She denies systemic findings such as fever, chills nor nausea or vomiting. She is had no chest pain or shortness of breath and is otherwise well and free of complaint. Related Data Home Medications Medication Instructions Recorded Confirmed buprenorphine 5.7 mg-naloxone 1.4 3 tab sublingual DAILY 12/18/19 04/10/20 mg sublingual tablet (Zubsolv) Previous Rx's Medication Instructions Recorded fluconazole 150 mg tablet 150 mg PO DAILY #4 tabs 12/18/19 (Diflucan) lorazepam 0.5 mg tablet 0.5 mg PO DAILY PRN anxiety #2 tabs 12/18/19 phenazopyridine 200 mg tablet 200 mg PO TID 6 doses #6 tabs 12/18/19 (Pyridium) sulfamethoxazole 800 1 tab PO BID #14 tabs 12/18/19 mg-trimethoprim 160 mg tablet (Bactrim DS) fluconazole 150 mg tablet 150 mg PO Q3D 2 doses #2 tabs 10/27/20 (Diflucan) ketorolac 10 mg tablet 10 mg PO TID PRN pain #14 tabs 10/27/20 penicillin V potassium 500 mg 500 mg PO TID #30 tabs 10/27/20 tablet Allergies Allergy/AdvReac Type Severity Reaction Status Date / Time No Known Drug Allergies Allergy Verified 04/10/22 19:45 Review of Systems Review of Systems Narrative: GENERAL: See HPI HEENT: Denies sinus pain, ear pain, sore throat, difficulty swallowing, dizziness. RESPIRATORY: Denies dyspnea, cough, wheezing, hemoptysis, sputum. CARDIOVASCULAR: Denies chest pain, palpitations, orthopnea, edema, GASTROINTESTINAL: Denies nausea, vomiting, abdominal pain, diarrhea, constipation, melena. : Denies dysuria, frequency, incontinence, hematuria, urinary retention. MUSCULOSKELETAL: denies weakness, joint pain, or bony pain SKIN: See HPI NEUROLOGIC: Denies weakness, headache, numbness, change in speech, confusion, seizures, incoordination. PSYCHIATRIC: No concerning psychosocial issues. 12 point review of systems is negative except for those stated above Patient History Medical History Anxiety Drug abuse PTSD (post-traumatic stress disorder) Urinary tract infection Social History Smoking Status: Former smoker Smoking Status: Former smoker alcohol intake frequency: a few times a week Substance Use Type: does not use and prescription drug Exam Narrative Exam Narrative: GEN: AOx3 and in mild distress EYES: Pupils are equal, round, and reactive to light and accommodation. Extraoccular muscles are intact bilaterally. There is no subconjunctival hemorrhage or exudate. CHEST: Lungs are clear to auscultation bilaterally and free of wheezes, rales, or rhonchi. Heart rate is regular rhythm, there are no murmurs, clicks, rubs, or gallops. There is no chest wall tenderness. ABD: Abdomen is soft and nontender. There is no guarding or rebound. Bowel sounds are normal in all 4 quadrants. There is no mass or organomegaly. EXT: Right posterior lower calf with a 0.5 cm clear fluid-filled blister which is intact without any underlying erythema or induration, a 2nd small clear fluid-filled blister noted a bit inferiorly. Left posterior calf with a small healed lesion with a tiny scab, no evidence of ulceration or necrosis, no significant erythema, edema, induration, fluctuance or lymphangitis. Full painless ROM of all extremities with no loss of sensation or strength. SKIN: Warm, pink, and dry. No erythema or rash Initial Vital Signs Initial Vital Signs: Vital Signs Temperature 98.0 F 04/10/22 19:40 Pulse Rate 89 04/10/22 19:40 Respiratory Rate 16 04/10/22 19:40 Blood Pressure 131/86 04/10/22 19:40 Pulse Oximetry 95 04/10/22 19:40 Oxygen Delivery Method 04/10/22 19:40 Course Vital Signs Vital signs: Vital Signs - 8 hr 04/10/22 19:40 04/10/22 20:38 Temperature 98.0 F Pulse Rate 89 82 Respiratory Rate 16 19 Blood Pressure 131/86 Pulse Oximetry 95 98 Oxygen Delivery Method Room Air Room Air MDM - Skin/Abscess/Foreign Bdy MDM Narrative Medical decision making narrative: Patient with a few likely spider bites on lower extremities with clear fluid- filled blisters and no signs of infection. There is no ulceration or necrosis, no redness, swelling, induration, fluctuance or lymphangitis. Patient overall is doing quite well and has no systemic findings. No further treatment needed, return precautions discussed and questions answered to her apparent satisfaction Discharge Plan Departure Patient Disposition: Home Clinical Impression: Accidental spider bite Instructions: DI for Spider Bites Activity Restrictions/Additional Instructions: *You have been diagnosed with [lower extremity spider bites. As we discussed they appear well and to be following atypical course, there is no specific intervention needed right now] *What to do: *Please continue to take your regular medications as directed. [ ] New medication prescriptions sent to your pharmacy: [ ] [ ] New medication written as a paper prescription [x ] No new medications given *Please follow up with your primary care provider in 2-3 days, call for an appointment. Let them know you were seen in the Emergency Department and that we ask that you be seen in follow up. We will electronically transmit a record of today's note if your PCP is in our system *If you do not have a primary care provider please contact the [facility] Resource line at [phone]. They will ask some questions about your medical history and help get you set up with a doctor in the community. *Return to Emergency Department if you should have any new, worsening or concerning symptoms, such as [fever greater than 101 F, shaking chills, worsening pain, persistent vomiting or other bothersome symptoms] Prescriptions: No Action Zubsolv 5.7-1.4 mg tablet, sublingual 3 tab SL DAILY sulfamethoxazole-trimethoprim [Bactrim DS] 800-160 mg tablet 1 tab PO BID Qty: 14 0RF phenazopyridine [Pyridium] 200 mg tablet 200 mg PO TID Qty: 6 1RF fluconazole [Diflucan] 150 mg tablet 150 mg PO DAILY Qty: 4 1RF Rx Instructions: Take at onset of yeast infection then repeat in 1 week lorazepam 0.5 mg tablet 0.5 mg PO DAILY PRN (Reason: anxiety) Qty: 2 0RF Rx Instructions: Take 1 tablet 20 minutes prior to procedure may repeat if not affective penicillin V potassium 500 mg tablet 500 mg PO TID Qty: 30 0RF ketorolac 10 mg tablet 10 mg PO TID PRN (Reason: pain) Qty: 14 0RF fluconazole [Diflucan] 150 mg tablet 150 mg PO Q3D Qty: 2 0RF Rx Instructions: may repeat second dose 72 hrs after first dose if symptoms persist Referrals: Harry Lambert MD [Primary Care Provider] - Visit Report Forms: Patient Portal/API
[2022-04-10 20:38] VITALS: PULSE 82; RESP 19; O2SAT 98
== END 2022-04-10 20:38 | disposition home or self-care (01) ==
PROVIDERS: Emergency Provider Emergency Medicine; PCP Family Medicine Sports Medicine
DX: S80.862A Insect bite (nonvenomous), left lower leg, initial encounter (principal); S80.861A Insect bite (nonvenomous), right lower leg, initial encounter; W57.XXXA Bitten or stung by nonvenomous insect and other nonvenomous arthropods, initial encounter
CPT/HCPCS: 99281

== ENCOUNTER 2024-07-04 21:35 | Emergency (ER) | payer OTHER, MEDICAID, SELFPAY ==
[2024-07-04 21:40] VITALS: BP 159/95; PULSE 70; RESP 17; TEMP 36.8; O2SAT 98; BMI 23.0
--- NOTE | 2024-07-05 01:08 | ED_ITS ---
HPI - Burn/Smoke Inhalation General Chief complaint: Burn/Smoke Inhalation Stated complaint: lt foot gonzalez Time Seen by Provider: 07/05/24 01:08 Source: patient Mode of arrival: Ambulatory History of Present Illness HPI Narrative: Patient is a 39-year-old healthy female who presents today with left foot burn. She reports that she dropped hot water on top of her left foot. She had blisters in 4 different areas. Tetanus is up-to-date no numbness or tingling. Related Data Home Medications Medication Instructions Recorded Confirmed buprenorphine 4 mg-naloxone 1 mg 1 film buccal Q24H 06/14/24 06/14/24 sublingual film (Suboxone) ketorolac 10 mg tablet 10 mg PO Q8H 06/14/24 06/14/24 Previous Rx's Medication Instructions Recorded amoxicillin 500 mg tablet 500 mg PO Q12H #10 tabs 06/14/24 fluconazole 150 mg tablet 150 mg PO ONCE #1 tab 06/14/24 Allergies Allergy/AdvReac Type Severity Reaction Status Date / Time No Known Drug Allergies Allergy Verified 07/04/24 21:40 Patient History Medical History (Updated 07/05/24 @ 01:34 by Wendi Castro DO) Urinary tract infection Drug abuse PTSD (post-traumatic stress disorder) Anxiety Social History Smoking Status: Former smoker Smoking Status: Former smoker alcohol intake frequency: a few times a week Substance Use Type: does not use and prescription drug Exam Initial Vital Signs Initial Vital Signs: Vital Signs Temperature 98.2 F 07/04/24 21:40 Pulse Rate 70 07/04/24 21:40 Respiratory Rate 17 07/04/24 21:40 Blood Pressure 159/95 H 07/04/24 21:40 Pulse Oximetry 98 07/04/24 21:40 Oxygen Delivery Method Room Air 07/04/24 21:40 GENERAL: Well-appearing, well-nourished and in no acute distress. CARDIOVASCULAR: peripheral pulses in tact, cap refill <2 sec RESPIRATORY: No respiratory distress, speaks in full sentences without difficulty EXTREMITIES: Normal range of motion, no clubbing or edema. Neurovascularly int act NEUROLOGICAL: Cranial nerves II through XII grossly intact. Normal gait and speech. SKIN: Left foot 3 large areas of burn 3 cm x 1 cm, 3 cm 2 cm and over 2nd and 3rd toes as well Course Orders Ordered: Discontinued Medications Hydrocodone Bitart/Acetaminophen (Hydrocodone/Acet 5/325 Prepack) 1 bottle MISC DIRECTED ONE Stop: 07/05/24 01:29 Last Admin: 07/05/24 01:40 Dose: 1 bottle Documented By: VINCENT Vital Signs Vital signs: Vital Signs - 8 hr 07/04/24 21:40 07/05/24 01:50 Temperature 98.2 F 98.1 F Pulse Rate 70 73 Respiratory Rate 17 20 Blood Pressure 159/95 H 121/68 Pulse Oximetry 98 98 Oxygen Delivery Method Room Air Room Air MDM - Burn/Smoke Inhalation MDM Narrative Medical decision making narrative: Patient 39-year-old female presents today with second-degree burn to the top of her left foot. He was multiple different areas she does have some blisters over her 2nd and 3rd toes as well those were ruptured as well. Biggest area measures 3 x 2 cm. Blisters were ruptured Xeroform placed. [facility] Burn video 305 given. Pain medicine given Discharge Plan Departure Patient Disposition: Home Clinical Impression: Burn of second degree of left foot, initial encounter Instructions: DI for Gonzalez Activity Restrictions/Additional Instructions: *You have been diagnosed with second-degree burn left foot *What to do: Keep area covered. You may use Xeroform use nonadherent pads. Use bacitracin ointment 2-3 times daily. You may weightbear as tolerated. Elevate and ice as needed. [facility] burn video for foot 305-you tube and do it *Continue to take medications as directed [place] 1 tablet every 6 hours if needed for severe pain Tylenol Motrin as needed for pain *Follow up with your primary care provider in 2-3 days or call [phone] *Return to ER if you should have increasing redness swelling pain or any new, worsening or concerning symptoms Prescriptions: No Action buprenorphine-naloxone [Suboxone] 4-1 mg film 1 film buccal Q24H Rx Instructions: place 1 strip/tab under (each) side of tongue ketorolac 10 mg tablet 10 mg PO Q8H Rx Instructions: maximum total duration of 5 days from all oral, intranasal, or parenteral formulations amoxicillin 500 mg tablet 500 mg PO Q12H Qty: 10 0RF fluconazole 150 mg tablet 150 mg PO ONCE Qty: 1 0RF Rx Instructions: as a single dose Referrals: Harry Lambert MD [Primary Care Provider] - Stand Alone Forms: Patient Portal/API/Survey
[2024-07-05] MEDS: HYDROCODONE/ACET 5/325 PREPACK 1 BOTTLE MISC (01:40)
[2024-07-05 01:50] VITALS: BP 121/68; PULSE 73; RESP 20; TEMP 36.7; O2SAT 98
--- NOTE | 2024-07-05 01:50 | PC.NURSE ---
Haddad to L foot dressed by provider without RN involvement
== END 2024-07-05 01:52 | disposition home or self-care (01) ==
PROVIDERS: Emergency Provider Emergency Medicine; PCP Family Medicine Sports Medicine
DX: T25.222A Burn of second degree of left foot, initial encounter (principal); X11.8XXA Contact with other hot tap-water, initial encounter
CPT/HCPCS: 99281; 99283

== ENCOUNTER 2024-07-07 09:43 | Emergency (ER) | payer OTHER, MEDICAID, SELFPAY ==
[2024-07-07 09:51] VITALS: BP 149/81; PULSE 74; RESP 16; TEMP 36.6; O2SAT 95; BMI 22.3
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
[2024-07-07] MEDS: BACITRACIN OINT 0.9 GM PCKT 2 APPLIC TOP (11:26)
== END 2024-07-07 11:52 | disposition home or self-care (01) ==
PROVIDERS: Emergency Provider Physician Assistant; PCP Family Medicine Sports Medicine
DX: T25.222A Burn of second degree of left foot, initial encounter (principal); X11.8XXA Contact with other hot tap-water, initial encounter
CPT/HCPCS: 99282

== ENCOUNTER 2024-10-04 17:17 | Emergency (ER) | payer OTHER, MEDICAID, SELFPAY ==
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
[2024-10-04 17:20] VITALS: BP 170/92; PULSE 85; RESP 18; TEMP 36.6; O2SAT 96; BMI 23.0
[2024-10-04 17:35] VITALS: BP 174/94; PULSE 92; RESP 18; O2SAT 95
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
[2024-10-04] MEDS: ACETAMINOPHEN 325 MG TABLET 975 MG PO (18:08)
--- NOTE | 2024-10-04 19:28 | PC.NURSE ---
C-collar removed at this time per Georges Kramer
[2024-10-04 19:55] VITALS: BP 145/72; PULSE 65; RESP 18; O2SAT 97
== END 2024-10-04 19:58 | disposition home or self-care (01) ==
PROVIDERS: Emergency Provider Physician Assistant; PCP Family Medicine Sports Medicine
DX: S16.1XXA Strain of muscle, fascia and tendon at neck level, initial encounter (principal); V43.52XA Car driver injured in collision with other type car in traffic accident, initial encounter; Y92.410 Unspecified street and highway as the place of occurrence of the external cause
CPT/HCPCS: 71045; 72125; 99283; 99284